=== PATIENT | female | born 1950 | race Caucasian/White ===

== ENCOUNTER 2017-01-25 10:40 | Day surgery (SDC) | payer BC, MEDICARE, OTHER ==
[~2017-01-25 10:40] MED LIST: Lactated Ringers 1,000 ML IV SCH
[2017-01-25] MEDS ORDERED: fentaNYL 100 MCG/2 ML SDV ONE (11:54)
[2017-01-25] MEDS ORDERED: Propofol 200 MG/20 ML SDV ONE (11:55)
[2017-01-25 13:13] VITALS: BP 116/73
--- NOTE | 2017-01-26 07:49 | OR ---
PREOPERATIVE DIAGNOSIS: History of polyps. POSTOPERATIVE DIAGNOSIS: History of polyps. PROCEDURE PERFORMED: Colonoscopy with polypectomy. Three polyps were taken out at 70 cm and 1 polyp was taken out at 40 cm. INDICATION: The patient is a 66-year-old female, who presents for colonoscopy at this time. She has a history of colon polyps in the past. DESCRIPTION OF PROCEDURE: Procedure was done in the endoscopy suite. Sedation was given per Anesthesia. She was placed in left lateral position. First, a rectal exam was done and was normal. Scope was introduced in the rectum, slowly advanced through the rectum, sigmoid, descending, transverse, and ascending colon until the cecum was reached. Upon reaching the cecum, the scope was slowly withdrawn looking at all mucosal surface on the way out. No mucosal abnormalities, lesions, or polyps were until I hit 70 cm, where 3 small polyps were found. They were removed by hot loop forceps. The scope was withdrawn further at 40 cm, another polyp was located and also removed by hot loop forceps. The remainder of the exam was normal. FINAL DIAGNOSIS: Polyp at 40 cm and 3 polyps at 70 cm. BKD: 01/25/2017 12:38:27 MODL: 01/25/2017 22:17:38 /[id number]
== END 2017-01-25 13:35 | disposition home or self-care (01) ==
LOC: VM.SDS 10:40
PROVIDERS: ATTEND Surgery
DX: Z12.11 Encounter for screening for malignant neoplasm of colon (principal); D12.6 Benign neoplasm of colon, unspecified; I10 Essential (primary) hypertension; E78.5 Hyperlipidemia, unspecified; E78.1 Pure hyperglyceridemia; D50.9 Iron deficiency anemia, unspecified; G47.33 Obstructive sleep apnea (adult) (pediatric); Z91.09 Other allergy status, other than to drugs and biological substances; Z98.890 Other specified postprocedural states; Z79.82 Long term (current) use of aspirin; Z79.899 Other long term (current) drug therapy
CPT/HCPCS: 45380; J2704; J3010; J7120

== ENCOUNTER 2020-01-22 09:20 | Day surgery (SDC) | payer MEDICARE, OTHER ==
[2020-01-22] MEDS ORDERED: Propofol 200 MG/20 ML SDV ONE (09:59)
[2020-01-22] MEDS ORDERED: fentaNYL 100 MCG/2 ML SDV ONE (09:59)
[2020-01-22 11:43] VITALS: BP 120/77; PULSE 84
--- NOTE | 2020-01-22 18:12 | OR ---
PREOPERATIVE DIAGNOSIS: History of colon polyps. POSTOPERATIVE DIAGNOSIS: History of colon polyps. PROCEDURE PERFORMED: Colonoscopy with polypectomy. Polyps removed at 70, 60, and 40 cm. PROCEDURE IN DETAIL: This was done in the endoscopy suite at [facility]. She was placed in left lateral position first. Anesthesia was given per Anesthesia. The first anal exam done was normal. Scope was then introduced into the rectum and advanced to the rectum, sigmoid, descending, transverse, and ascending colon until the cecum was reached. Upon reaching the cecum, scope was slowly withdrawn looking at all mucosal surfaces on the way out. At 70, 60, and 40 cm, small polyps were found and removed by hot loop forceps. The remainder of the exam was normal. FINAL DIAGNOSIS: Polyps at 70, 60, and 40 cm. BKD: 01/22/2020 11:29:49 MODL: 01/22/2020 18:05:50 /[id number]
== END 2020-01-22 12:35 | disposition home or self-care (01) ==
LOC: VM.SDS 09:20
PROVIDERS: ATTEND Surgery
DX: Z12.11 Encounter for screening for malignant neoplasm of colon (principal); D12.6 Benign neoplasm of colon, unspecified; I10 Essential (primary) hypertension; G47.33 Obstructive sleep apnea (adult) (pediatric); E78.5 Hyperlipidemia, unspecified; Z86.010 Personal history of colon polyps; Z80.0 Family history of malignant neoplasm of digestive organs; Z98.890 Other specified postprocedural states; Z87.891 Personal history of nicotine dependence; Z79.899 Other long term (current) drug therapy; Z79.82 Long term (current) use of aspirin; Z88.8 Allergy status to other drugs, medicaments and biological substances; Z91.09 Other allergy status, other than to drugs and biological substances
CPT/HCPCS: 00811; 45384; 88305; J2704; J3010; J7120

== ENCOUNTER 2023-08-09 10:29 | Day surgery (SDC) | payer MEDICARE, OTHER ==
[~2023-08-09 10:29] MED LIST changes: +Propofol 200 MG/20 ML SDV ONE; +fentaNYL 100 MCG/2 ML SDV ONE
[2023-08-09] MEDS ORDERED: Propofol 200 MG/20 ML SDV ONE (11:24)
[2023-08-09 12:44] VITALS: BP 114/69; PULSE 72
== END 2023-08-09 13:17 | disposition home or self-care (01) ==
LOC: VM.SDS 10:29
PROVIDERS: ATTEND Surgery
DX: Z12.11 Encounter for screening for malignant neoplasm of colon (principal); D12.0 Benign neoplasm of cecum; I10 Essential (primary) hypertension; E78.5 Hyperlipidemia, unspecified; L20.89 Other atopic dermatitis; R73.03 Prediabetes; Z86.010 Personal history of colon polyps; Z79.899 Other long term (current) drug therapy
CPT/HCPCS: 00811; 45380; 45384; 88305; J2704; J3010; J7120

== ENCOUNTER 2025-02-05 10:34 | Day surgery (SDC) | payer MEDICARE, OTHER ==
[2025-02-05] MEDS: Lactated Ringers 1,000 ML IV SCH (11:30)
[2025-02-05] MEDS ORDERED: Lidocaine 1% 30 ML SDV ONE (11:38)
[2025-02-05] MEDS ORDERED: fentaNYL 100 MCG/2 ML SDV ONE (12:13)
[2025-02-05] MEDS ORDERED: Midazolam 1 MG/ML 2 ML SDV ONE (12:13)
[2025-02-05] MEDS ORDERED: Propofol 200 MG/20 ML SDV ONE (12:13)
[2025-02-05] MEDS ORDERED: ceFAZolin 1 GM Vial ONE (12:41)
[2025-02-05] MEDS: Lidocaine 1% 30 ML SDV INJECT ONE ×2 (12:47)
[2025-02-05 13:42] VITALS: BP 105/74; PULSE 76
== END 2025-02-05 13:57 | disposition home or self-care (01) ==
LOC: VM.SDS 10:34
PROVIDERS: ATTEND Surgery
DX: D17.1 Benign lipomatous neoplasm of skin and subcutaneous tissue of trunk (principal); I10 Essential (primary) hypertension; E78.5 Hyperlipidemia, unspecified; Z87.891 Personal history of nicotine dependence; Z79.899 Other long term (current) drug therapy
CPT/HCPCS: 00300; 99100; J0690; J2250; J2704; J3010; J3490; J7120